=== PATIENT | male | born 1985 | race Caucasian/White ===

== ENCOUNTER 2020-04-25 04:11 | Inpatient (IN) ==
[2020-04-25] MEDS ORDERED: SODIUM CHLORIDE 0.9% 1,000 ML IV STA (04:34)
[2020-04-25] MEDS ORDERED: ONDANSETRON 4 MG/2 ML VIAL IV STA (04:34)
[2020-04-25 04:51] LABS: Basophils # 0.1 10*3/uL (0.0-0.2); Basophils % 0.6 % (0.0-0.8); Eosinophils % 0.3 % (0.00-10.9); Hematocrit 46.2 VOL% (42.0-52.0); Hemoglobin 14.6 GM/DL (14.0-18.0); Immature Granulocytes % 0.7 %; Immature Granulocytes Absolute 0.08 #; Lymphocytes # 1.6 10*3/uL (1.4-4.0); Lymphocytes % 13.2 % (21.2-54.2); Mean Corpuscular HGB Conc 31.6 GM/DL (32-36); Mean Platelet Volume 10.3 FL (9.6-12.0); Monocytes % 6.4 % (1.7-12.7); Neutrophils % 78.8 % (38.7-73.9); Platelet Count 301 T/CUMM (130-400); Red Blood Count 5.25 MC/CUMM (3.8-5.5); Red Cell Distribution Width 14.6 % (9.3-17.3)
[2020-04-25 05:04] LABS: Alanine Aminotransferase 21 U/L (16-61); Albumin 4.4 G/DL (3.4-5.0); Alkaline Phosphatase 35 U/L (45-117); Aspartate Amino Transferase 15 U/L (0-37); Blood Urea Nitrogen 11 MG/DL (7-18); Calcium 9.1 MG/DL (8.5-10.1); Estimated Glom Filtration Rate 88 ML/MIN; Glucose 89 MG/DL (74-106); Osmolality,Calculated 278.3 MOS/KG (273-304); Total Protein 8.1 G/DL (6.4-8.3)
[2020-04-25 05:11] LABS: Salicylate < 2.8 MG/DL (2.8-20)
[2020-04-25 05:13] LABS: Acetaminophen < 2.0 UG/ML (10-30)
[2020-04-25 05:37] LABS: Barbiturates Screen,Urine Negative (Negative); Benzodiazepines Screen,Urine Negative (Negative); Cannabinoid Screen,Urine Positive (Negative); Opiate Screen,Urine Negative (Negative); Phencyclidine Screen,Urine Negative (Negative)
[2020-04-25] MEDS ORDERED: CLINDAMYCIN INJ 600 MG in PREMIX 1 EACH IV STA (05:45)
[2020-04-25] MEDS ORDERED: LACTULOSE 20 GM/30 ML UDCUP PO PRN (08:19)
[2020-04-25] MEDS ORDERED: DOCUSATE SODIUM 100 MG CAPSULE PO PRN (08:19)
[2020-04-25] MEDS ORDERED: ONDANSETRON 4 MG/2 ML VIAL IV PRN (08:19)
[2020-04-25] MEDS ORDERED: NICOTINE 21 MG/24 HR PATCH TRANSDERM PRN (08:19)
[2020-04-25] MEDS ORDERED: DEXTROSE 10% 250 ML BAG IV PRN (08:19)
[2020-04-25] MEDS ORDERED: ACETAMINOPHEN 325 MG TABLET PO PRN (08:19)
[2020-04-25] MEDS ORDERED: GLUCAGON 1 MG VIAL IM PRN (08:19)
[2020-04-25] MEDS ORDERED: HydrOXYzine PAMOATE 25 MG CAPSULE PO PRN (08:23)
[2020-04-25] MEDS ORDERED: METHOCARBAMOL 750 MG TABLET PO PRN (08:23)
[2020-04-25] MEDS ORDERED: LORazepam 2 MG/1 ML VIAL IV PRN (08:25)
[2020-04-25] MEDS: SODIUM CHLORIDE 0.9% 1,000 ML IV SCH ×2 (10:22→23:48)
[2020-04-25 11:45] LABS: Ferritin 33.9 ng/ml (26-388)
[2020-04-25] MEDS: PANTOPRAZOLE 40 MG TABLET PO SCH (13:56)
[2020-04-25] MEDS: MIRTAZAPINE 15 MG TABLET PO SCH (13:56)
[2020-04-26] MEDS: PANTOPRAZOLE 40 MG TABLET PO SCH ×2 (08:18→08:22)
[2020-04-26] MEDS: MIRTAZAPINE 15 MG TABLET PO SCH ×2 (08:18→08:22)
[2020-04-26 17:19] VITALS: BP 108/70
== END 2020-04-26 17:27 | disposition home or self-care (01) | DRG 918 ==
LOC: N.ED 04:11 → SUATTDRO 08:19 → N.EDINP 08:19 → N.4E 09:56 → N.TELES 04-26 08:47
PROVIDERS: ADMIT Internal Medicine Critical Care Medicine; ATTEND Internal Medicine